=== PATIENT | female | born 2000 | race Caucasian/White ===

== ENCOUNTER 2022-01-20 13:51 | Outpatient (CLI) | payer BC, SELFPAY ==
--- NOTE | ~2022-01-20 | US_ITS ---
US arterial ankle brachial ind INDICATION: Numbness and tingling of the lower extremities. Toes. TECHNIQUE: Segmental pressures and plethysmographic and Doppler waveforms of the brachial and lower e xtremity arteries were obtained. COMPARISON: None. FINDINGS: Right and left brachial artery pressures of 106 mm Hg and 109 mm Hg, respectively, are concordant (no rmal difference <= 30 mmHg). The right ankle-brachial index (ALBERTO) is 1.1 (normal >= 0.9-1.0). The right great toe-brachial index ( TBI) is 0.61 (normal >= 0.60). The left ALBERTO is 1.09. The left TBI is 0.61. IMPRESSION: 1. Normal bilateral ankle and toe brachial indices. Reviewed, dictated and finalized at location B.
== END 2022-01-20 13:52 | disposition home or self-care (01) ==
PROVIDERS: PCP Internal Medicine; Visit Provider Nurse Practitioner
DX: R20.9 Unspecified disturbances of skin sensation (principal)
CPT/HCPCS: 93922

== ENCOUNTER → 2022-02-11 15:21 | Outpatient (CLI) | payer BC, SELFPAY ==
--- NOTE | ~2022-02-11 | US_ITS ---
EXAMINATION: US pelvic complete w TV DATE: 02/11/2022 15:51 INDICATION: Pelvic pain, enlarged uterus TECHNIQUE: Multiple transabdominal and endovaginal sonographic images of the pelvis were obtained. COMPARISON: None. FINDINGS: The uterus measures 5.9 x 2.2 x 3.5 cm. The endometrial complex measures 3 mm. The right ov dylon measures 2.8 x 1.8 x 1.6 cm. The left ovary measures 3.2 x 2.1 x 1.3 cm. There is normal vascular flow in the ovaries. There is no free fluid in the pelvis. IMPRESSION: 1. No sonographic correlate for the patient's symptoms. Reviewed, dictated and finalized at location B.
== END ==
PROVIDERS: PCP Advanced Practice Midwife; Visit Provider Advanced Practice Midwife
DX: N91.2 Amenorrhea, unspecified (principal)
CPT/HCPCS: 76830; 76856